=== PATIENT | male | born 1960 | race Caucasian/White ===

== ENCOUNTER 2019-05-21 19:29 | Emergency (ER) | payer SELFPAY ==
--- NOTE | 2019-05-21 19:33 | ED.EYEPROB ---
HPI - Eye Problem General Chief complaint: Eye Problems Stated complaint: Right eye Time Seen by Provider: 05/21/19 19:40 Source: patient and RN notes reviewed Mode of arrival: ambulatory Limitations: no limitations History of Present Illness HPI Narrative: 59-year-old male presents with concern for left eye pain. Reports several hours prior to arrival he was carrying a branch from the brain scratched his eye. He denies any sensation of foreign body. Reports blurred vision in the left eye. Reports pain 5 out of 10. Denies any purulent discharge. MD chief complaint: eye pain Related Data Home Medications Medication Instructions Recorded Confirmed atorvastatin 05/21/19 trandolapril-verapamil PO 05/21/19 Allergies Allergy/AdvReac Type Severity Reaction Status Date / Time No Known Allergies Allergy Verified 05/21/19 19:46 Review of Systems Review of Systems: Narrative: CONSTITUTIONAL: Denies malaise, chills, sweats, or fever. EYES: Reports blurred vision in the left eye, denies other visual changes. Reports pain, redness, watery discharge in the left eye. ENT: Denies rhinorrhea, congestion, sinus pain, otalgia or sore throat. NEUROLOGIC: Denies headache. All systems reviewed & are unremarkable except as noted in HPI and below PMFSH Family History Family History (Updated 10/21/13 @ 07:13 by DOCTOR UNKNOWN) Mother Family history of malignant neoplasm Father Family history of malignant neoplasm of testis Other Carcinoma of colon Social History Social History Alcohol intake: current Comments At time of signature, agree with nursing past medical, surgical, social and family history. There is no relevant family history pertinent to the presenting complaint Exam Narrative: Exam Narrative: GENERAL: Well-appearing, well-nourished, and in no acute distress. HEAD: Normocephalic, atraumatic. EYES: Right eye PERRLA, conjunctivae clear, and EOMI. left eye sclera injected, corneal abrasion noted upon Pickard lamp exam, see note ENT: Nares clear. Mucous membranes moist. NECK: Supple. No lymphadenopathy. CHEST: No respiratory distress. Speaks in full sentences. HEART: Regular rate and rhythm. SKIN: Warm, dry NEURO: Alert and oriented x3. PSYCH: Normal mood and affect Course Course Emergency Course: Patient is aware of diagnosis, understands and agrees to treatment plan. Anticipatory guidance given. Patient agrees to follow-up as directed and is aware of reasons to seek care at the emergency department. Portions of this record may have been created with voice recognition software Vital Signs Vital signs: Vital Signs Temperature 98.3 F 05/21/19 19:40 Pulse Rate 98 05/21/19 19:40 Respiratory Rate 16 05/21/19 19:40 Blood Pressure 160/106 H 05/21/19 19:40 Pulse Oximetry 98 05/21/19 19:40 Temperature 98.3 F 05/21/19 19:40 Pulse Rate 98 05/21/19 19:40 Respiratory Rate 16 05/21/19 19:40 Blood Pressure 160/106 H 05/21/19 19:40 Pulse Oximetry 98 05/21/19 19:40 Reviewed. Patient has history of hypertension Procedures Other Procedure Procedure 1: Other Procedure: Tetracaine 1 gtt instilled in left eye, fluorescein stain applied. Corneal abrasion noted upon pickard lamp exam at approximately 7 o'clock in relation to the pupil. Eye washed with NS 100 ml. No foreign bodies or Calli sign noted. MDM - Eye Problem MDM Narrative Medical decision making narrative: Consideration of the following conditions may be warranted for the presenting problem, they are not final diagnoses: Bacterial conjunctivitis, allergic conjunctivitis, viral conjunctivitis, foreign body, blepharitis, chalazion, hordeolum, corneal abrasion. Exam findings show no acute concerns or changes; patient is non-toxic appearing and is in no distress. Patient is appropriate for outpatient treatment and follow-up. Critical Care Time Critical Care Time Critical Care Time: No Discharge Plan D
[2019-05-21 19:40] VITALS: BP 160/106; PULSE 98; RESP 16; TEMP 36.8; O2SAT 98
== END 2019-05-21 19:54 | disposition home or self-care (01) ==
PROVIDERS: Emergency Provider Nurse Practitioner
DX: S05.02XA Injury of conjunctiva and corneal abrasion without foreign body, left eye, initial encounter (principal); W22.8XXA Striking against or struck by other objects, initial encounter; E78.00 Pure hypercholesterolemia, unspecified; I10 Essential (primary) hypertension; Z85.830 Personal history of malignant neoplasm of bone; Z92.21 Personal history of antineoplastic chemotherapy; Z92.3 Personal history of irradiation
CPT/HCPCS: 99203; G0463